=== PATIENT | female | born 1990 | race Caucasian/White ===

== ENCOUNTER 2017-12-06 11:17 | Emergency (ER) | payer OTHER ==
[~2017-12-06] VITALS: Ht 167.6 cm; Wt 91.6 kg
[~2017-12-06 11:17] MED LIST: CAMILA0.35 MG PO; FERROUS GLUCON324 MG PO; IBUPROFEN800 MG PO; PRENATAL TABLE1 EAC3 PO
[2017-12-06 12:17] LABS: HEMATOCRIT 42.8 % (36.0-46.0); HEMOGLOBIN 14.5 G/DL (11.9-15.5); MCH 29.6 PG (29.0-34.0); MCHC 33.9 G/DL (30.0-36.0); MCV 87.3 FL (83-99); PLATELET COUNT 229 K/uL (156-360); RBC DIS.WIDTH-CV 13.9 % (11.8-14.6); WHITE BLOOD COUNT 7.2 K/uL (4.1-10.2)
[2017-12-06 12:27] LABS: CHLORIDE 105 mEq/L (99-109); POTASSIUM 3.9 mEq/L (3.7-5.4); SODIUM 140 mEq/L (136-147)
[2017-12-06 12:29] LABS: GLUCOSE 109 mg/dL (70-99)
[2017-12-06 12:33] LABS: CREATININE 0.7 mg/dL (0.6-1.3); GFR ESTIMATE (CALCULATED) > 59 mL/min/
[2017-12-06 12:34] LABS: UREA NITROGEN (BUN) 7 mg/dL (9-23)
[2017-12-06 13:35] LABS: APPEARANCE CLEAR ((CLEAR)); BILIRUBIN NEGATIVE; BLOOD NEGATIVE; COLOR STRAW ((YELLOW)); GLUCOSE (STRIP) NEGATIVE; KETONES NEGATIVE; LEUKOCYTES NEGATIVE; NITRITE NEGATIVE; PROTEIN (STRIP) NEGATIVE; SPECIFIC GRAVITY 1.004 (1.000-1.030); UROBILINOGEN 0.2 MG/DL (0.2-1.0)
[2017-12-06] MEDS ORDERED: MOTRIN800 MG PO (13:47)
[2017-12-06 14:05] LABS: QUANTITATIVE HCG < 4.0 MIU/ML
[2017-12-06 14:08] VITALS: BP 124/67
[2017-12-07 09:22] LABS: HEMOGLOBIN A1c (GLYCOHEMOGLOB) 5.3 % (Below 5.7)
== END 2017-12-06 14:08 | disposition home or self-care (01) ==
LOC: EME 11:17
PROVIDERS: Nurse Practitioner Family
DX: R55 Syncope and collapse (principal); M54.16 Radiculopathy, lumbar region; Z88.0 Allergy status to penicillin
CPT/HCPCS: 71046; 80048; 81003; 83036; 84702; 85027; 93005; 99281; 99284